=== PATIENT | male | born 1950 | race Caucasian/White ===

== ENCOUNTER 2019-01-05 22:20 | Emergency (ER) | payer MEDICARE, OTHER ==
[~2019-01-05] VITALS: Ht 177.8 cm; Wt 101.6 kg
--- OUTSIDE RECORDS SUMMARY | 2019-01-05 22:26 | XMS REPORT | Continuity of Care Document ---
Author Organization Unknown Address Unknown Allergies There is no data. Medications There is no data. Problems There is no data. Procedures There is no data. Results Test Result Range MICROALBUMIN/CREATININE RATIO, URINE - 11/05/18 08:00 CREATININE, RANDOM URINE 111 mg/dL 20-320 MICROALBUMIN 0.5 mg/dL See Note: MICROALBUMIN/CREATININE RATIO, RANDOM URINE 5 mcg/mg creat <30 Encounters ACCT No. Visit Date/Time Discharge Status Pt. Type Provider Facility Loc./Unit Complaint [id number] 11/07/2018 10:15:00 11/07/2018 23:59:59 [facility] Outpatient [facility] [id number] 11/05/2018 08:00:00 Document Registration
--- NOTE | 2019-01-05 22:43 | ED Respiratory ---
General Chief Complaint: Respiratory Problems Stated Complaint: SOB, HIGH BLOOD PRESSURE Source: patient, spouse Exam Limitations: no limitations History of Present Illness Date Seen by Provider: Jan 05, 2019 Time Seen by Provider: 22:27 Initial Comments Patient presents to ER by private conveyance with his spouse and chief complaint that before he woke his up she noticed he was restless and breathing kind of funny in bed and he woke up feeling short of breath. She gave him a Klonopin about half an hour prior to arrival. He does have a history of anxiety. He also has a history of a cardiac stent. He denies any chest pain. He said the last 3 or 4 days at a little bit her right aching in his shoulder but it was after a injury working out ring some boxing exercises where he over extended himself. He says he is not having any pain at all today. No history of GERD. No history of asthma or COPD, asbestosis or other lung injury. No swelling of his hands or feet. No fevers chills nausea sweats diarrhea or constipation. He does not smoke cigarettes drink alcohol or use recreational drugs. Allergies and Home Medications Allergies Coded Allergies: No Known Drug Allergies (Unverified , 01/05/19) Patient Home Medication List Home Medication List Reviewed: Yes Review of Systems Review of Systems Constitutional: No chills, No fever EENTM: No hearing loss, No ear pain, No eye pain Respiratory: No cough, No phlegm; short of breath; No stridor, No wheezing Cardiovascular: No edema; Hx of Intervention; No palpitations Gastrointestinal: No abdominal pain, No constipation, No diarrhea, No nausea, No vomiting Genitourinary: No discharge, No dysuria Musculoskeletal: No back pain, No joint pain Past Xutyaxy-Dmhqvo-Qsaiex Hx Patient Social History Alcohol Use: Denies Use Recreational Drug Use: No Smoking Status: Never a Smoker Physical Exam Vital Signs - First Documented 01/05/19 22:25 Temp 98.5 Pulse 72 Resp 17 B/P (MAP) 172/79 (110) O2 Delivery Room Air Capillary Refill : Height: '" Weight: lbs. oz. kg; BMI Method: General Appearance: WD/WN, mild distress Eyes: Bilateral Eye Normal Inspection, Bilateral Eye PERRL, Bilateral Eye EOMI HEENT: PERRL/EOMI, normal ENT inspection, TMs normal, pharynx normal Neck: non-tender, full range of motion, supple, normal inspection Respiratory: chest non-tender, lungs clear, normal breath sounds, no resp iratory distress, no accessory muscle use Cardiovascular: normal peripheral pulses, regular rate, rhythm, no edema Gastrointestinal: normal bowel sounds, non tender, soft Extremities: normal inspection, no pedal edema, normal capillary refill Neurologic/Psychiatric: no motor/sensory deficits, alert, normal mood/affect, oriented x 3 Skin: normal color, warm/dry Progress/Results/Core Measures Suspected Sepsis SIRS Temperature: Pulse: Respiratory Rate: Laboratory Tests 01/05/19 23:00: White Blood Count 7.3 Blood Pressure / Mean: Laboratory Tests 01/05/19 23:00: Creatinine 1.18, Platelet Count 141, Total Bilirubin 0.9 Results/Orders Lab Results Laboratory Tests Test 01/05/19 22:28 01/05/19 23:00 Range/Units Glucometer 117 H 70-110 MG/DL White Blood Count 7.3 4.3-11.0 10^3/uL Red Blood Count 4.52 4.35-5.85 10^6/uL Hemoglobin 13.6 13.3-17.7 G/DL Hematocrit 40 40-54 % Mean Corpuscular Volume 88 80-99 FL Mean Corpuscular Hemoglobin 30 25-34 PG Mean Corpuscular Hemoglobin Concent 34 32-36 G/DL Red Cell Distribution Width 12.3 10.0-14.5 % Platelet Count 141 130-400 10^3/uL Mean Platelet Volume 9.9 7.4-10.4 FL Neutrophils (%) (Auto) 57 42-75 % Lymphocytes (%) (Auto) 30 12-44 % Monocytes (%) (Auto) 7 0-12 % Eosinophils (%) (Auto) 5 0-10 % Basophils (%) (Auto) 1 0-10 % Neutrophils # (Auto) 4.2 1.8-7.8 X 10^3 Lymphocytes # (Auto) 2.2 1.0-4.0 X 10^3 Monocytes # (Auto) 0.5 0.0-1.0 X 10^3 Eosinophils # (Auto) 0.3 0.0-0.3 10^3/uL Basophils # (Auto) 0.0 0.0-0.1 10^3/uL Blood Gas Puncture Site LEFT RADIAL Blood Gas Patient Temperature ROOM TEMP Arterial Blood pH 7.46 H 7.37-7.43 Arterial Blood Partial Pressure CO2 43 35-45 MMHG Arterial Blood Partial Pressure O2 39 *L 79-93 MMHG Arterial Blood HCO3 31 H 23-27 MMOL/L Arterial Blood Total CO2 31.9 H 21.0-31.0 MMOL/L Arterial Blood Oxygen Saturation 77 L 94-100 % Arterial Blood Base Excess 6.1 H -2.5-2.5 MMOL/L Jean Test OK Blood Gas Ventilator Setting NO Blood Gas Inspired Oxygen ROOM AIR Sodium Level 136 135-145 MMOL/L Potassium Level 3.9 3.6-5.0 MMOL/L Chloride Level 95 L 98-107 MMOL/L Carbon Dioxide Level 26 21-32 MMOL/L Anion Gap 15 H 5-14 MMOL/L Blood Urea Nitrogen 17 7-18 MG/DL Creatinine 1.18 0.60-1.30 MG/DL Estimat Glomerular Filtration Rate > 60 BUN/Creatinine Ratio 14 Glucose Level 119 H 70-105 MG/DL Calcium Level 9.5 8.5-10.1 MG/DL Corrected Calcium 9.4 8.5-10.1 MG/DL Total Bilirubin 0.9 0.1-1.0 MG/DL Aspartate Amino Transf (AST/SGOT) 16 5-34 U/L Alanine Aminotransferase (ALT/SGPT) 21 0-55 U/L Alkaline Phosphatase 90 40-136 U/L Troponin I < 0.30 <0.30 NG/ML Pro-B-Type Natriuretic Peptide 102.4 H <75.0 PG/ML Total Protein 6.9 6.4-8.2 GM/DL Albumin 4.1 3.2-4.5 GM/DL My Orders Orders - ALMAZ VOSS Continuous Ekg Monitoring (01/05/19 22:34) Ekg Tracing (01/05/19 22:34) Cbc With Automated Diff (01/05/19 22:34) Comprehensive Metabolic Panel (01/05/19 22:34) Troponin I (01/05/19 22:34) Probnp Fs (01/05/19 22:34) Chest Pa/Lat (2 View) (01/05/19 22:34) Ed Iv/Invasive Line Start (01/05/19 22:34) Arterial Blood Gas (01/05/19 22:34) Vital Signs/I&O 01/05/19 22:25 Temp 98.5 Pulse 72 Resp 17 B/P (MAP) 172/79 (110) O2 Delivery Room Air Capillary Refill : Progress Note #1: Time: 22:41 Progress Note Patient has subjective finding of shortness of breath and high blood pressure however his heart rates in the 60s and his oxygen sats are in the upper 90s. Sleep apnea as a possible source of his symptoms. We will do a workup to include EKG labs and observe his blood pressure at rest. After I left the room it went from 170 down to 138/87. Anxiety is also very real possibility. Progress Note #2: Time: 23:41 Progress Note ABG appears to be a venous sample. Progress Note #3: Time: 00:32 Progress Note Labs are unremarkable. The patient says his breathing is much better now. Suspect there could be a component of anxiety versus even sleep apnea. He says in the past he was encouraged to get a sleep study but insurance did not want to pay for it. We have encouraged him to follow up with primary care to get a sleep study set up. ECG Initial ECG Impression Date: Jan 05, 2019 Initial ECG Impression Time: 22:39 Initial ECG Rate: 62 Initial ECG Rhythm: Normal Sinus Initial ECG Intervals: MT (234) Initial ECG Impression: Normal, Nonspecific Changes Initial ECG Comparisson: No Previous ECG Available Comment No clinically significant ST elevation or depression. Diagnostic Imaging Diagonstic Imaging: Xray Plain Films/CT/US/NM/MRI: chest (2v) Comments No acute cardiopulmonary processes noted. Two-view chest x-ray. Reviewed: Reviewed by Me Departure Impression Primary Impression: Dyspnea and respiratory abnormalities Additional Impression: Anxiety Disposition: 01 HOME, SELF-CARE Condition: Stable Departure-Patient Inst. Decision time for Depature: 00:33 Referrals: ISSAC BLACK (PCP) Primary Care Physician NO,LOCAL PHYSICIAN (Family) Primary Care Physician Patient Instructions: Shortness of Breath (Dyspnea) (DC) Add. Discharge Instructions: Follow-up with your primary care doctor this week and discuss a sleep study looking for disorganized sleep architecture such as obstructive sleep apnea. All discharge instructions reviewed with patient and/or family. Voiced understanding. ALMAZ VOSS Jan 05, 2019 22:42
[2019-01-05 23:29] LABS: ABG PO2 39 MMHG (79-93)
[2019-01-05 23:30] LABS: ABG TCO2 31.9 MMOL/L (21.0-31.0); ALLENS TEST OK; INSPIRED O2 ROOM AIR; PATIENT TEMP ROOM TEMP; VENTILATOR NO
[2019-01-05 23:31] LABS: ABG PH 7.46 (7.37-7.43)
[2019-01-05 23:32] LABS: ABG BASE EXCESS 6.1 MMOL/L (-2.5-2.5); ABG PCO2 43 MMHG (35-45)
[2019-01-05 23:33] LABS: ABG OXYGEN SATURATION 77 % (94-100)
[2019-01-05 23:34] LABS: BASOPHILS % (AUTO) 1 % (0-10); EOSINOPHILS % (AUTO) 5 % (0-10); HEMATOCRIT 40 % (40-54); HEMOGLOBIN 13.6 G/DL (13.3-17.7); LYMPHOCYTES % (AUTO) 30 % (12-44); MEAN CORPUSCULAR HEMOGLOBIN 30 PG (25-34); MEAN CORPUSCULAR HGB CONC 34 G/DL (32-36); MEAN CORPUSCULAR VOLUME 88 FL (80-99); MEAN PLATELET VOLUME 9.9 FL (7.4-10.4); MONOCYTES % (AUTO) 7 % (0-12); NEUTROPHILS % (AUTO) 57 % (42-75); PLATELET COUNT 141 10^3/uL (130-400); RED CELL DISTRIBUTION WIDTH 12.3 % (10.0-14.5); WHITE BLOOD COUNT 7.3 10^3/uL (4.3-11.0)
[2019-01-05 23:35] LABS: EOSINOPHILS # (AUTO) 0.3 10^3/uL (0.0-0.3); LYMPHOCYTES # (AUTO) 2.2 X 10^3 (1.0-4.0); MONOCYTES # (AUTO) 0.5 X 10^3 (0.0-1.0); NEUTROPHILS # (AUTO) 4.2 X 10^3 (1.8-7.8)
[2019-01-05 23:58] LABS: ALANINE AMINOTRANSFERASE 21 U/L (0-55); ALKALINE PHOSPHATASE 90 U/L (40-136); BILIRUBIN,TOTAL 0.9 MG/DL (0.1-1.0); BUN/CREATININE RATIO 14; CALCIUM 9.5 MG/DL (8.5-10.1); CARBON DIOXIDE 26 MMOL/L (21-32); CHLORIDE 95 MMOL/L (98-107); CREATININE SERUM 1.18 MG/DL (0.60-1.30); GFR ESTIMATED > 60; GLUCOSE 119 MG/DL (70-105); POTASSIUM 3.9 MMOL/L (3.6-5.0); SODIUM 136 MMOL/L (135-145)
[2019-01-06] LABS: TOTAL PROTEIN 6.9 GM/DL (6.4-8.2)
[2019-01-06 00:02] LABS: ALBUMIN 4.1 GM/DL (3.2-4.5)
[2019-01-06 00:37] VITALS: BP 172/79
--- NOTE | 2019-01-06 07:58 | Diagnostic Imaging Report ---
EXAMINATION: CHEST (PA AND LATERAL) CLINICAL INDICATION: 68-year-old male, shortness of breath. COMPARISON: None. FINDINGS: Heart size and mediastinal contours are unremarkable. There is no identified pneumothorax. There is no pleural effusion. There is no identified focal airspace consolidation. IMPRESSION: No identified acute cardiopulmonary abnormality. Dictated by: Dictated on workstation # [id number]
== END 2019-01-06 00:39 | disposition home or self-care (01) ==
LOC: EDUNIT# 22:20 → ER FS 22:22
DX: F41.9 Anxiety disorder, unspecified (principal); R06.00 Dyspnea, unspecified; R84.9 Unspecified abnormal finding in specimens from respiratory organs and thorax; Z95.5 Presence of coronary angioplasty implant and graft
CPT/HCPCS: 36415; 71046; 80053; 82805; 82962; 83880; 84484; 85025; 93005